=== PATIENT | female | born 1985 | race African-American/Black ===

== ENCOUNTER 2020-06-12 10:26 | Emergency (ER) | payer OTHER ==
[2020-06-12 10:43] VITALS: BP 108/70; PULSE 78; TEMP 98; BMI 28.1
[2020-06-12] MEDS ORDERED: KETOROLAC TROMETHAMINE 60 MG/2 ML VIAL IM ONE (11:37)
[2020-06-12] MEDS ORDERED: KETOROLAC TROMETHAMINE 60 MG/2 ML VIAL ONE (11:46)
== END 2020-06-12 13:27 | disposition home or self-care (01) ==
LOC: JERFT 10:26
PROC: 3E0233Z Introduction of Anti-inflammatory into Muscle, Percutaneous Approach (ICD-10-PCS; principal; 2020-06-12)
DX: S39.011A Strain of muscle, fascia and tendon of abdomen, initial encounter (principal)
CPT/HCPCS: 93971-TC; 99284-25